=== PATIENT | female | born 1980 | race Caucasian/White ===

== ENCOUNTER 2016-05-18 11:20 | Inpatient (IN) | payer MEDICAID ==
[2016-05-18] VITALS (12 sets, daily range): BP systolic 107–120; BP diastolic 52–69; PULSE 64–96; RESP 15–22; TEMP 98.6
[~2016-05-18] VITALS: Wt 70.0 kg
[2016-05-18] MEDS ORDERED: ONDANSETRON 4 MG INJ IV STA ×2 (12:07→15:38)
[2016-05-18] MEDS ORDERED: KETOROLAC 30 MG INJ IV STA (12:26)
--- NOTE | 2016-05-18 12:57 | RADRPT ---
PROCEDURE: Abdominal ultrasound CLINICAL INDICATION: Abdominal pain TECHNIQUE: Lawrence scale, color Doppler, and spectral Doppler ultrasound images of the right upper qu adrant. COMPARISON: None FINDINGS: Pancreas: Visualized portions appear of normal echogenicity, no focal lesions. Liver: Morphology: Normal in size and contour. Echogenicity: Normal. Focal lesions: None. Main portal vein: Patent with hepatopetal flow. Biliary System: Normal appearing gallbladder wall. Minimal sludge seen layering within the gallbladder. No definite shadowing gallstones are identifie d. No intra or extra-hepatic biliary dilatation. Common bile duct measures 3.6 mm in maximal dimension. Kidneys: Right 10.9 cm in length. Normal echogenicity. No hydronephrosis. No focal lesions or renal calculi. No free fluid identified. IMPRESSION: Normal gallbladder. No gallstones are seen. RPTAT: AADD .Jimmy Phillips MD, MD Date Time Electronically viewed and signed by .Jimmy Phillips MD, on 05/18/2016 12:56 .B/
[2016-05-18 13:04] LABS: BASOPHILS % 0.1 % (0.0-2.0); EOSINOPHILS % 0.2 % (0.0-7.0); HEMATOCRIT 31.1 % (37.0-47.0); HEMOGLOBIN 10.4 g/dl (12.0-16.0); LYMPHOCYTES # 1.6 10^3/ul (0.8-2.9); LYMPHOCYTES % 7.9 % (15.0-51.0); MEAN CORPUSCULAR HEMOGLOBIN 25.8 pg (29.0-33.0); MEAN CORPUSCULAR HGB CONC 33.5 g/dl (32.0-37.0); MEAN CORPUSCULAR VOLUME 76.9 fl (82.0-101.0); MONOCYTE # 0.9 10^3/ul (0.3-0.9); MONOCYTES % 4.4 % (0.0-11.0); NEUTROPHIL # 17.2 10^3/ul (1.6-7.5); NEUTROPHILS % 87.4 % (39.0-77.0); PLATELET COUNT 363 10^3/UL (140-440); RED BLOOD COUNT 4.05 10^6/ul (4.20-5.40); UNCORRECTED WBC 19.7 10^3/ul (4.8-10.8); WHITE BLOOD COUNT 19.7 10^3/ul (4.8-10.8)
[2016-05-18 13:10] LABS: ALBUMIN 4.3 g/dl (3.3-4.9)
[2016-05-18 13:11] LABS: POTASSIUM 3.6 mmol/L (3.5-5.1)
[2016-05-18 13:12] LABS: CONDITION 1; LH ANALYZER COMMENTS 1
[2016-05-18 13:13] LABS: BILIRUBIN,INDIRECT 0.4 mg/dl (0-1.1); BILIRUBIN,TOTAL 0.4 mg/dl (0.2-1.3); CREATININE 0.51 mg/dl (0.44-1.00)
[2016-05-18 13:14] LABS: ALBUMIN/GLOBULIN RATIO 1.19; CALCIUM 9.3 mg/dl (8.4-10.2); TOTAL PROTEIN 7.9 g/dl (6.1-8.1)
[2016-05-18 13:16] LABS: ADD UMIC YES; URINE BILIRUBIN (Dip) NEGATIVE (NEGATIVE); URINE BLOOD (Dip) 2+ (NEGATIVE); URINE COLOR LT. YELLOW (YELLOW); URINE GLUCOSE (Dip) NEGATIVE (NEGATIVE); URINE KETONES (Dip) 15 (NEGATIVE); URINE LEUKOCYTE ESTERASE (Dip) NEGATIVE (NEGATIVE); URINE NITRITE (Dip) NEGATIVE (NEGATIVE); URINE TOTAL PROTEIN (Dip) NEGATIVE (NEGATIVE); URINE UROBILINOGEN (Dip) 0.2 E.U./dL (0.1-1.0)
[2016-05-18 14:01] LABS: BACTERIA,URINE FEW; URINE RBCS 0-2 /HPF (0)
[2016-05-18] MEDS ORDERED: SOD CHLORIDE 0.9% 100 ML ONE (14:58)
[2016-05-18] MEDS ORDERED: IOHEXOL 300MG/ML 150 ML BTL ONE (14:58)
[2016-05-18] MEDS ORDERED: SOD CHLORIDE 0.9% 1,000 ML IV STA (15:27)
[2016-05-18] MEDS ORDERED: PIPER-TAZO 3.375 GM IV (PMX) 100 ML IVPB STA (15:27)
--- NOTE | 2016-05-18 15:27 | RADRPT ---
PROCEDURE: CT Abdomen and Pelvis with contrast. CLINICAL INDICATION: Abdominal pain, leukocytosis TECHNIQUE: CT of the abdomen and pelvis was performed on a multi-detector scanner following the un complicated IV administration of 100 cc of Omnipaque 300. Coronal and sagittal images were reformat shanice from the axial data set. One or more of the following dose reduction techniques were used: auto mated exposure control, adjustment of the mA and/or kV according to patient size, use of iterative reconstruction technique. CTDI = 9.38 mGy. DLP = 491.05 mGy-cm. COMPARISON: Ultrasound, 05/18/2016 FINDINGS: CT abdomen: The lung bases are clear. The heart size is normal, without pericardial effusion. Liver, gallbladd er, biliary tree, pancreas, spleen, adrenal glands and kidneys are unremarkable. No urolithiasis or obstructive uropathy is identified. The stomach is grossly unremarkable. There is no abdominal aortic aneurysm or dissection. There is no retroperitoneal lymphadenopathy. The marcie hepatis region is clear. CT pelvis: The appendix is distended (10 mm diameter), with adjacent inflammation, with appendicitis. No bowel obstruction, free intraperitoneal air or abscess is identified. There is no diverticulosis, divert iculitis or colitis. Urinary bladder, uterus and adnexa are grossly unremarkable. No pelvic mass, free fluid or lymphadenopathy is seen. The surrounding osseous structures are unremarkable. No osteolytic or osteoblastic lesion is detect ed. IMPRESSION: 1. The study is positive for appendicitis, as above. A call report was made to Dr. Dietrich on 05/18/2016 3:23:43 PM. RPTAT: TT .Cristobal Waters MD, Date Time Electronically viewed and signed by .Cristobal Waters MD, on 05/18/2016 15:26 .R/
[2016-05-18] MEDS ORDERED: morphine 4 MG/ML VIAL IV STA (15:38)
--- NOTE | 2016-05-18 16:20 | ERA ---
ER Documentation Chief Complaint Date/Time DATE: 05/18/16 TIME: 16:10 Chief Complaint ABD PAIN X 2 DAYS HPI 36-year-old female complaining of abdominal pain and vomiting since 5 AM this morning. The pain is constant, in the mid to upper region. She also vomited 6 times today, several times she notes a small amount of blood in the vomit. Patient states that she frequently has this type of abdominal pain and vomiting in the past. In the past when she has abdominal pain, the pain is usually worse after eating. She has not eaten anything today. Last meal was last night. Her last bowel movement was this morning, which was normal. LMP 2015. Denies fever or chills. Denies diarrhea. ROS All systems reviewed and are negative except as per history of present illness. Allergies Allergies: Coded Allergies: No Known Allergy (Unverified , 05/18/16) PMhx/Soc Medical and Surgical Hx: pt denies Medical Hx, pt denies Surgical Hx Physical Exam Vitals Vital Signs Date Time Temp Pulse Resp B/P Pulse Ox O2 Delivery O2 Flow Rate FiO2 05/18/16 16:17 98.6 80 20 106/51 100 Room Air 05/18/16 11:25 98.0 88 18 122/78 99 Physical Exam General impression: Well-developed, well-nourished, 36-year-old female, alert, oriented, in no acute distress Head: Normocephalic, atraumatic. Eyes: Conjunctiva not injected. Neck: Supple, nontender. No lymphanopathy. No nuchal rigidity. Respiration: Normal respiratory effort. Lungs clear to auscultate bilaterally. No wheezes, rales or rhonchi. Cardiovascular: Regular rate and rhythm. No murmurs or extra heart sounds. Abdomen: Abdomen normal to inspection. Diffuse abdominal tenderness noted, with epigastric, right upper quadrant and right lower quadrant tenderness. No rebound or guarding. No masses or organomegaly. Bowel sounds normal. Back: Normal to inspection. No midline spine tenderness. No CVA tenderness. Neuro: Mental status normal, speech normal. Skin: Normal turgor. No rash or lesions. Psych: Normal mood and affect. Result Diagram: 05/18/16 1237 05/18/16 1237 Results 24 hrs Laboratory Tests Test 05/18/16 12:37 Alanine Aminotransferase (ALT/SGPT) 27IU/L Albumin 4.3g/dl Albumin/Globulin Ratio 1.19 Alkaline Phosphatase 80IU/L Anion Gap 15 Aspartate Amino Transf (AST/SGOT) 24IU/L Basophils # 0.010^3/ul Basophils % 0.1% Blood Morphology Comment Blood Urea Nitrogen 13mg/dl Calcium Level 9.3mg/dl Carbon Dioxide Level 27mmol/L Chloride Level 102mmol/L Creatinine 0.51mg/dl Direct Bilirubin 0.00mg/dl Eosinophils # 0.010^3/ul Eosinophils % 0.2% Globulin 3.60g/dl Glucose Level 107mg/dl Hematocrit 31.1% Hemoglobin 10.4g/dl Indirect Bilirubin 0.4mg/dl Lipase 65U/L Lymphocytes # 1.610^3/ul Lymphocytes % 7.9% Mean Corpuscular Hemoglobin 25.8pg Mean Corpuscular Hemoglobin Concent 33.5g/dl Mean Corpuscular Volume 76.9fl Mean Platelet Volume 8.0fl Monocytes # 0.910^3/ul Monocytes % 4.4% Neutrophils # 17.210^3/ul Neutrophils % 87.4% Nucleated Red Blood Cells # 0.010^3/ul Nucleated Red Blood Cells % 0.0/100WBC Platelet Count 47896^3/UL Potassium Level 3.6mmol/L Red Blood Count 4.0510^6/ul Red Cell Distribution Width 17.0% Sodium Level 140mmol/L Total Bilirubin 0.4mg/dl Total Protein 7.9g/dl Urine Bacteria FEW Urine Bilirubin NEGATIVE Urine Clarity CLEAR Urine Color LT. YELLOW Urine Epithelial Cells FEW Urine Glucose NEGATIVE% Urine Hemoglobin 2+ Urine Ketones 15 Urine Leukocyte Esterase NEGATIVE Urine Microscopic RBC 0-2/HPF Urine Microscopic WBC 0-2/HPF Urine Nitrite NEGATIVE Urine Specific [place] 1.025 Urine Total Protein NEGATIVE Urine Urobilinogen 0.2 E.U./dL Urine pH 5.5 White Blood Count 19.710^3/ul Current Medications Medications (Trade) Dose Ordered Sig/Onel Route PRN Reason Start Time Stop Time Status Last Admin Dose Admin Ondansetron HCl (Zofran Inj) 4 mg ONCE STAT IV 05/18/16 12:07 05/18/16 12:12 DC 05/18/16 12:48 Ketorolac Tromethamine (Toradol) 30 mg ONCE STAT IV 05/18/16 12:26 05/18/16 12:27 DC 05/18/16 12:50 IV Flush 10 ml 10 ml STK-MED ONCE .ROUTE 05/18/16 14:58 05/18/16 14:59 DC 05/18/16 15:14 Sodium Chloride (NS) 100 ml @ ud STK-MED ONCE .ROUTE 05/18/16 14:58 05/18/16 14:59 DC 05/18/16 15:14 Iohexol 150 ml 150 ml STK-MED ONCE .ROUTE 05/18/16 14:58 05/18/16 14:59 DC 05/18/16 15:18 Sodium Chloride 1,000 ml @ 1,000 mls/hr Q1H STAT IV 05/18/16 15:27 05/18/16 16:26 05/18/16 16:04 Piperacillin Sod/ Tazobactam Sod (Zosyn 3.375gm/ 100 ml (Pmx)) 100 ml @ 200 mls/hr ONCE STAT IVPB 05/18/16 15:27 05/18/16 15:56 DC 05/18/16 16:04 Morphine Sulfate (morphine) 4 mg ONCE STAT IV 05/18/16 15:38 05/18/16 15:39 DC Ondansetron HCl (Zofran Inj) 4 mg ONCE STAT IV 05/18/16 15:38 05/18/16 15:39 DC Ondansetron HCl (Zofran Inj) 4 mg BRIDGE ORDER PRN IV NAUSEA AND/OR VOMITING 05/18/16 16:30 05/19/16 16:29 Acetaminophen 650 mg 650 mg ER BRIDGE PRN PO MILD PAIN/FEVER 05/18/16 16:30 05/19/16 16:29 Sodium Chloride (NS) 1,000 ml @ 1,000 mls/hr Q1H ONCE IV 05/18/16 16:30 05/18/16 17:29 Procedures/MDM Zofran given to the patient in the ED for nausea of vomiting. After Zofran, patient is no longer feeling nauseous. Patient also given morphine 4 mg IV for pain. Urine was negative. CBC, CMP, lipase, and UA was obtained. Leukocytosis noted with WBC 19.7, neutrophils 87.4%. CMP and lipase are unremarkable. UA showed 2+ hemoglobin, otherwise negative. Gallbladder ultrasound is normal, no gallstones were seen. CT abdomen and pelvis also obtained. CT showed acute appendicitis with this extended appendix appendix distended at 10 mm in diameter with adjacent inflammation. Normal saline 1 L bolus, Zosyn 3.375 g IV is ordered for the patient. Patient transferred to ED while under care of Dr. Hartmann for admission. Patient condition at time of transfer: Stable. PAMELA CHRISTIE NP May 18, 2016 16:20
--- NOTE | 2016-05-18 16:29 | EN ---
Date/Time of Note Date/Time of Note DATE: 05/18/16 TIME: 16:27 ER Progress Note 36-year-old female with appendicitis. Workup began in ED 2. I was notified when the CT came back positive for appendicitis. Patient's pain is currently controlled with morphine. I ordered another liter of fluids I ordered coagulation studies and a type and screen. I spoke with Dr. Villa, general surgeon on-call, who accepts the case. I also spoke with Dr. Gray who will be admitting the patient to the medical surgical floor. Patient is currently comfortable. Vital signs are stable RAMEZ FITZGERALD DO May 18, 2016 16:28
[2016-05-18] MEDS ORDERED: SOD CHLORIDE 0.9% 1,000 ML IV ONE (16:30)
[2016-05-18] MEDS ORDERED: ONDANSETRON 4 MG INJ IV PRN ×4 (16:30→20:00)
[2016-05-18] MEDS ORDERED: ACETAMINOPHEN 325 MG TAB PO PRN ×3 (16:30→20:00)
[2016-05-18 16:52] LABS: INR 1.02; PROTIME 13.4 Sec (12.2-14.2)
[2016-05-18 16:53] LABS: PARTIAL THROMBOPLASTIN TIME 27.3 Sec (25.0-35.0)
[2016-05-18] MEDS ORDERED: NACL 0.9% 3 ML SYG IV SCH (17:00)
[2016-05-18] MEDS ORDERED: MAGNESIUM HYDROXIDE 30ML CUP PO PRN (17:00)
[2016-05-18] MEDS ORDERED: BISACODYL (EC) 5 MG TAB PO PRN (17:00)
[2016-05-18] MEDS ORDERED: D5W-0.45 NACL + KCL 10 MEQ 1,000 ML IV SCH (17:00)
[2016-05-18] MEDS ORDERED: morphine 2 MG INJ IV PRN ×2 (17:00→20:00)
--- NOTE | 2016-05-18 17:05 | HP ---
Date/Time of Note Date/Time of Note DATE: 05/18/16 TIME: 16:58 Assessment/Plan VTE Prophylaxis VTE Prophylaxis Intervention: SCD's Assessment/Plan Assessment/Plan 1. Acute abdominal pain. CT evidence of acute appendicitis. The patient will be started on empiric antibiotics. The patient will be kept NPO. She will be provided with IV hydration. General surgery consult was already called. The patient will be provided with adequate pain control. 2. Leukocytosis. Most probably secondary to #1. Will start the patient on empiric antibiotics. 3. Microcytic, hypochromic anemia. Etiology unclear. Will obtain an iron panel to evaluate for any underlying iron deficiency. Will obtain a stool for occult blood. 4. Hematochezia. The patient verbalized that she has been having hematochezia on and off for the past 1 week. The patient also verbalized that she has hemorrhoids. This could be the most probable reason for her underlying hematochezia. Will obtain a stool for occult blood on this patient. Plan: The patient will be admitted to inpatient medical surgical floor. The patient will be kept NPO. The patient will be started on DVT prophylaxis and gastrointestinal prophylaxis. The patient will remain a full code. Activities will be as tolerated. The rest of the patient's management will be based on the clinical course, inputs from consultants, and the results of diagnostic studies. Based on the patient's clinical presentation, he most probably requires at least 1 midnight's stay for further management and evaluation of his clinical presentation. The case and management of this patient was fully discussed with Approximately 50 minutes was spent on the history and physical of this patient. HPI/ROS Admit Date/Time Admit Date/Time Hx of Present Illness Reason for admission: Abdominal pain with associated vomiting. Consultants 1. Eleuterio Villa M.D., General Surgery. This is a 36-year-old female without any significant past medical history who came to the emergency room with chief complaint of abdominal pain that has been going on for the past 2 days which got worse along with associated vomiting since 5 AM on 05/18/2016. The patient reported 6 episodes of bilious vomiting with some blood stain in it. She denied any fevers, chills, diarrhea, dysuria, or hematuria. The patient complained of hematochezia that has been going on and off for the past 1 week or so. The patient also verbalized some epistaxis during the past 1 week that resolved on its own. She denied any chest pain, dyspnea, headache, or dizziness. In the emergency room, the patient underwent a CT scan of the abdomen and pelvis that showed evidence of acute appendicitis. The patient's gallbladder ultrasound showed normal gallbladder with no evidence of any gallstones. The patient was started on IV fluids and was given a single dose of IV antibiotics in the emergency room. ROS Constitutional: no complaints Eyes: no complaints ENT: bleeding (Epistaxis) Respiratory: no complaints Cardiovascular: no complaints Gastrointestinal: other (hematochezia), pain, vomiting Genitourinary: no complaints Musculoskeletal: no complaints Skin: no complaints Neurologic: no complaints Endocrine: no complaints Lymphatic: no complaints Psychological: no complaints PMH/Family/Social Past Medical History Medical History: no pertinent history Past Surgical History Past Surgical Hx: no surgical history Social History The patient lives with family at home. Alcohol Use: none Smoking Status: Never smoker Drug Use: none Exam/Review of Systems Vital Signs Vitals Vital Signs Date Time Temp Pulse Resp B/P Pulse Ox O2 Delivery O2 Flow Rate FiO2 05/18/16 16:17 98.6 80 20 106/51 100 Room Air Exam Exam General: Adequately build 36 year-old female lying in bed in no apparent distress. HEENT: Normocephalic, atraumatic. Eyes: Anicteric sclerae, conjunctivae clear. ENT: Nasal septum midline, oral mucosa moist. Neck supple, no JVD noticed. Respiratory: Bilaterally clear breath sounds. No use of accessory muscles of respiration. No adventitious breath sounds. Cardiovascular: S1, S2 heard. No murmurs or gallops. Abdomen: Soft and nondistended. Bowel sounds positive in all 4 quadrants. Tenderness to palpation in the left upper quadrant, left lower quadrant, right lower quadrant, and periumbilical area. No rebound tenderness. Genitourinary: No CVA tenderness bilaterally. Extremities: No cyanosis, no clubbing, no edema. Peripheral pulses palpable. Neurologic: Cranial nerves II through XII grossly intact. The patient is awake, alert, and oriented. Skin: Normal skin turgor. No skin rashes. Labs Result Diagram: 05/18/16 1237 05/18/16 1237 Medications Medications Current Medications Sodium Chloride (NS) 1,000 ml @ 1,000 mls/hr Q1H ONCE IV Last administered on 05/18/16t 16:25; Admin Dose 1,000 MLS/HR; Start 05/18/16 at 16:30; Stop at 17:[address] SCAN OF ABDOMEN AND PELVIS IMPRESSION: 1. The study is positive for appendicitis. GALLBLADDER ULTRASOUND IMPRESSION: Normal gallbladder. No gallstones are seen. REMI PRETTY NP May 18, 2016 17:05
[2016-05-18 18:20] LABS: IRON 21 ug/dl (35-150)
[2016-05-18 18:30] LABS: TOTAL IRON BINDING CAPACITY 494 ug/dl (241-421)
[2016-05-18] MEDS ORDERED: LIDOCAINE 1%/EPI 30 ML INJ ONE (19:47)
[2016-05-18] MEDS ORDERED: BUPIVACAINE 0.25%/EPI (SDV) 30 ML INJ ONE ×2 (19:48→20:02)
[2016-05-18] MEDS ORDERED: LIDOCAINE 2% (SDV) 5 ML INJ ONE (19:52)
[2016-05-18] MEDS ORDERED: PROPOFOL 20 ML ONE (19:52)
[2016-05-18] MEDS ORDERED: HYDROCODONE/APAP (5/325) TAB PO PRN (20:00)
[2016-05-18] MEDS ORDERED: OXYCODONE/ACETAMINOPHEN (5/325) TAB PO PRN (20:00)
[2016-05-18] MEDS ORDERED: hydrALAzine 20 MG INJ IV PRN (20:00)
[2016-05-18] MEDS ORDERED: LABETALOL HCL 20MG INJ IV PRN (20:00)
[2016-05-18] MEDS ORDERED: IBUPROFEN 600 MG TAB PO PRN (20:00)
[2016-05-18] MEDS ORDERED: METOCLOPRAMIDE 10 MG INJ IV PRN (20:00)
[2016-05-18] MEDS ORDERED: FENTAnyl 50 MCG/ML VIAL IV PRN ×3 (20:00)
[2016-05-18] MEDS ORDERED: MEPERIDINE 25 MG INJ IV PRN (20:00)
[2016-05-18] MEDS ORDERED: HYDROmorphONE (0.2 MG/ML) 10ML SYG IV PRN ×3 (20:00)
[2016-05-18] MEDS ORDERED: LIDOCAINE 1% (MPF) 30 ML INJ ONE (20:02)
[2016-05-18] MEDS ORDERED: ONDANSETRON 4 MG INJ ONE (20:32)
[2016-05-18] MEDS ORDERED: DEXAMETHASONE 4 MG/ML 1 ML INJ ONE (20:32)
--- NOTE | 2016-05-18 20:54 | PREOPHP ---
DATE OF ADMISSION: 05/18/2016 HISTORY OF PRESENT ILLNESS: Ms. Machuca is a 36-year-old female, who developed acute onset of abdomin al pain yesterday, which worsened overnight. She had nausea and emesis. Her symptoms persisted and she came to the ER. Her CT revealed acute appendicitis. PAST MEDICAL HISTORY: Noncontributory. PAST SURGICAL HISTORY: None. MEDICATIONS: None. ALLERGIES: NO KNOWN DRUG ALLERGIES. SOCIAL HISTORY: She drinks occasionally. Denies smoking or drug use. PHYSICAL EXAMINATION: GENERAL: She is a well-nourished, well-developed female, in no apparent distress. VITAL SIGNS: Stable. She is afebrile. CHEST: Clear to auscultation bilaterally. HEART: Regular rhythm. ABDOMEN: Soft, nondistended, but significant right lower quadrant tenderness. LABORATORY DATA: Revealed a white count of 20, hematocrit of 31, platelets of 363,000. Sodium 140, potassium 3.6, chloride 102, CO2 27, BUN and creatinine 13 and 0.5, glucose 107. Her CT reveals ac fatou appendicitis. ASSESSMENT AND PLAN: Ms. Machuca is a 36-year-old female with acute appendicitis. I discussed laparo scopic, possible open appendectomy with the patient. All benefits, risks, alternatives were discuss ed in detail. All questions answered and patient elects to proceed. Dictated By: JALYN GONZALEZ/NTS Conf#: [id number] DID#: [id number]
[2016-05-18] MEDS ORDERED: SOD FERRIC GLUC COMPLX 125 MG in SOD CHLORIDE 0.9% 100 ML IVPB SCH (21:00)
[2016-05-18] MEDS: D5-NS + KCL 20 MEQ 1,000 ML IV SCH (21:48)
[2016-05-18] MEDS: FAMOTIDINE 20 MG INJ IV SCH (21:48)
[2016-05-18] MEDS ORDERED: PIPER-TAZO 3.375 GM IV (PMX) 100 ML IVPB SCH (22:30)
[2016-05-18] MEDS: PIPER-TAZO 3.375 GM IV (PMX) 100 ML IVPB SCH (23:07)
[2016-05-19 00:30] VITALS: BP 118/62; PULSE 82; RESP 18
[2016-05-19] MEDS: PIPER-TAZO 3.375 GM IV (PMX) 100 ML IVPB SCH ×3 (05:32→18:00)
[2016-05-19] MEDS: D5-NS + KCL 20 MEQ 1,000 ML IV SCH (05:32)
[2016-05-19 05:45] LABS: HEMATOCRIT 28.6 % (37.0-47.0); HEMOGLOBIN 9.7 g/dl (12.0-16.0); LYMPHOCYTES # 0.7 10^3/ul (0.8-2.9); LYMPHOCYTES % 4.4 % (15.0-51.0); MEAN CORPUSCULAR VOLUME 76.5 fl (82.0-101.0); MEAN PLATELET VOLUME 8.5 fl (7.4-10.4); MONOCYTE # 0.2 10^3/ul (0.3-0.9); MONOCYTES % 1.3 % (0.0-11.0); NEUTROPHIL # 14.6 10^3/ul (1.6-7.5); NEUTROPHILS % 94.3 % (39.0-77.0); PLATELET COUNT 358 10^3/UL (140-440); RED BLOOD COUNT 3.74 10^6/ul (4.20-5.40); RED CELL DISTRIBUTION WIDTH 16.8 % (11.5-14.5); UNCORRECTED WBC 15.5 10^3/ul (4.8-10.8); WHITE BLOOD COUNT 15.5 10^3/ul (4.8-10.8)
[2016-05-19 06:04] LABS: CHOL/HDL RATIO 2.1 RATIO; MAGNESIUM 1.9 mg/dl (1.7-2.5); PHOSPHORUS 3.5 mg/dl (2.5-4.9)
[2016-05-19 06:13] LABS: ALBUMIN 3.6 g/dl (3.3-4.9)
[2016-05-19 06:16] LABS: ALBUMIN/GLOBULIN RATIO 1.05; BILIRUBIN,INDIRECT 0.4 mg/dl (0-1.1); BILIRUBIN,TOTAL 0.4 mg/dl (0.2-1.3); CREATININE 0.57 mg/dl (0.44-1.00)
--- NOTE | 2016-05-19 06:16 | OPR ---
DATE OF OPERATION: 05/18/2016 PREOPERATIVE DIAGNOSIS: Acute appendicitis. POSTOPERATIVE DIAGNOSIS: Acute appendicitis. PROCEDURE: Laparoscopic appendectomy. SURGEON: Jalyn Villa MD BEAM BUILDER HELPER: None. ANESTHESIOLOGIST: Tiff ESTIMATED BLOOD LOSS: Minimal. COMPLICATIONS: None. SPECIMENS: Appendix. FINDINGS: Acute appendicitis. INDICATIONS: The patient is a 36-year-old female who had acute onset of generalized abdominal pain localizing to right lower quadrant. She presented to the ER at [facility] and workup was c onsistent with acute appendicitis. I discussed laparoscopic and possible open appendectomy with the patient. All benefits, risks, alternatives were discussed in detail. All questions answered. The patient elected to proceed. DESCRIPTION OF PROCEDURE: The patient was brought to the operating room and placed supine on the ta ble. After preop antibiotics and SCDs were placed, the patient was intubated and the abdomen was cl eaned, prepped and draped in sterile fashion. All incisions were infiltrated with 1% lidocaine with epinephrine and 0.5% Marcaine prior to incisi on. A 5 mm incision was made in the umbilicus. Using a 5 mm laparoscope-containing trocar, the abd omen was entered under direct vision and insufflated to 15 mmHg CO2. Under direct vision, a right l ower quadrant 5 mm and left lower quadrant 12 mm trocars were placed. Emanating from the cecum was an obvious acute appendicitis. It was not ruptured or perforated. I made a rent at the base of the appendix and divided the cecum at the appendiceal base with a 35 mm Endo Linear Cutter white load. The appendiceal mesentery was then divided with a 35 mm Endo Linear Cutter white load. The appendi x was placed in EndoCatch bag and removed from the 12 mm trocar site. I irrigated out the right lower quadrant and pelvis until effluent was clear. I visualized my stap le line and it was hemostatic. The fascia of the 12 mm trocar site was closed with 0 Vicryl. The a bdomen was then desufflated and all trocars removed. Skin incisions were closed with 4-0 Monocryl, Mastisol and Steri-Strips. The patient tolerated procedure well, was extubated in the OR and transferred to recovery room in st able condition. Dictated By: JALYN GONZALEZ/NTS Conf#: [id number] [facility]#: [id number]
[2016-05-19 06:17] LABS: CALCIUM 8.4 mg/dl (8.4-10.2)
[2016-05-19 06:23] LABS: CONDITION 1; LH ANALYZER COMMENTS 1
[2016-05-19 06:24] LABS: POTASSIUM 3.9 mmol/L (3.5-5.1)
[2016-05-19 06:34] LABS: THYROID STIMULATING HORMONE 0.22 MIU/L (0.465-4.680)
[2016-05-19] MEDS ORDERED: ENOXAPARIN 40 MG/0.4 ML SYG SC SCH (07:00)
[2016-05-19 07:12] VITALS: BP 111/56; RESP 17
[2016-05-19] MEDS: FAMOTIDINE 20 MG INJ IV SCH (08:43)
--- NOTE | 2016-05-19 10:42 | PDOCDIS ---
Discharge Instructions DIAGNOSIS Discharge Diagnosis: Acute appendicitis. Status post laparoscopic appendectomy. CONDITION Patient Condition: Stable HOME CARE INSTRUCTIONS: Diet Instructions: Regular ACTIVITY: Activity Restrictions: Slowly Increase Activity Rest between Activity Avoid heavy lifting Do not operate Machinery Do not operate Power Tool Avoid Heavy Housework Bathing Restrictions: Tub Bath FOLLOW UP/APPOINTMENTS Appointments Eleuterio Villa MD Specialty: General Surgery Office Address: [address] [facility] [address] [place] [id number] Office OTHER ORDERS: Other Orders: 1. Regular diet as tolerated. 2. Keep incisions clean and dry. May shower. Avoid tub baths and swimming for 2 weeks. Use mild soap and pat dry the incisions. 3. Take medications as needed for pain. 4. Call the surgeon or go to the nearest ER if you have severe abdominal pain despite pain medications. 5. Call the surgeon or go to the nearest ER if you notice any bleeding or secretions coming out of the incision sites. Also call the surgeon if you notice any blood in stool, if you have persistent fevers, or any other unusual signs or symptoms. 6. Follow-up with the surgeon Dr. Villa in 7 days for incision check. 7. Avoid heavy lifting [more than 25 pounds] for 8 weeks. REMI PRETTY NP May 19, 2016 10:41
[2016-05-19] MEDS ORDERED: CEPH-443 PO (10:43)
[2016-05-19] MEDS ORDERED: HYDR-3498 PO (10:43)
[2016-05-19] MEDS ORDERED: FER325 PO (10:43)
[2016-05-19] MEDS ORDERED: DOCU-144 PO (10:52)
[2016-05-19] MEDS ORDERED: OXYC-279 PO (10:52)
[2016-05-19] MEDS: HYDROCODONE/APAP (5/325) TAB PO PRN ×2 (12:13→18:12)
[2016-05-19] MEDS ORDERED: CEPASTAT LOZENGE MT PRN (13:00)
--- NOTE | 2016-05-19 15:38 | DS ---
DATE OF ADMISSION: 05/18/2016 DATE OF DISCHARGE: 05/19/2016 FINAL DIAGNOSES: 1. Acute appendicitis. Status post laparoscopic appendectomy. 2. Leukocytosis from appendicitis. 3. Microcytic hypochromic anemia, with underlying iron deficiency. CONSULTATIONS: Dr. Eleuterio Villa, General Surgery. HOSPITAL COURSE: This is a 36-year-old female without any significant past medical history, who came to the emergency room with a chief complaint of abdominal pain that has been going on for the past 2 days, which got worse, along with associated vomiting since 5 a.m. on 05/18/2016. The patient reported 6 episodes of bilious vomiting with some blood stain in it. She denied any fevers, chills, diarrhea, dysuria, or hematuria. The patient complained of hematochezia that has been going on and off for the past 1 week or so. The patient also verbalized some epistaxis during the past 1 week that resolved on its own. She denied any chest pain, dyspnea, headache or dizziness. In the emergency room, the patient underwent a CT scan of the abdomen and pelvis that showed evidence of acute appendicitis. Provided the patient's history of present illness and the diagnostic findings, a clinical decision was made to admit the patient to the inpatient setting to have her further evaluated. The patient was admitted to the inpatient medical/surgical floor. The patient was kept n.p.o. She was started on adequate analgesics. The patient was started on empiric antibiotics. A general surgery consult was called on this patient. The patient underwent a laparoscopic appendectomy on 05/18/2016, with no immediate postoperative complications. Postoperatively, the patient was started on a clear liquid diet and the patient's diet was advanced as tolerated to a regular consistency diet, without any significant gastrointestinal symptoms. The patient was encouraged on frequent use of incentive spirometry and frequent ambulation. The patient had some trouble with urinary retention postoperatively. Hence, the patient had a Burns catheter inserted, which was later removed, with no evidence of any urinary retention. The patient was also noticed to have microcytic, hypochromic anemia. The patient's iron panel showed iron deficiency. The patient was maintained on iron supplements for the same. The patient also verbalized that she had hematochezia prior to admission. A stool for OB was ordered on this patient; however, the patient had no bowel movements during this admission. Hence, this was not sent. The patient also verbalized that she has a history of hemorrhoids , the most probable reason for her underlying hematochezia. The patient had a stable hospital course. The patient was cleared by the consultants to be discharged home. The patient's pain is well controlled with oral analgesics. The patient is able to tolerate a regular consistency diet without any significant gastrointestinal symptoms. DISCHARGE DISPOSITION/PLAN: The patient will be discharged home today. The patient was instructed to take a regular diet as tolerated. She was instructed to keep the incisions clean and dry and she may shower, but to avoid tub baths and swimming for 2 weeks. She was instructed to use mild soap and to pat dry the incisions. She was instructed to take medications as needed for pain and to call the surgeon or go to the nearest emergency room if she has severe abdominal pain, despite pain medications. She was also instructed to call the surgeon or go to the nearest emergency room if she notices any bleeding or secretions coming out of the incision sites and also to call the surgeon if she notices any blood in the stool, if she has persistent fevers, or any other unusual signs or symptoms. The patient was instructed to follow up with Dr. Villa in 7 days for an incision check. She was instructed to avoid heavy lifting of more than 25 pounds for 8 weeks. The patient was also given a letter to her employment regarding the patient's hospitalization. The patient can return to work on 05/23/2016, with limitations of no heavy lifting for 8 weeks. The patient verbalized understanding of her discharge instructions. CONDITION AT DISCHARGE: Stable. DISCHARGE MEDICATIONS: 1. Colace 100 mg p.o. b.i.d. 2. Ferrous sulfate 325 mg p.o. b.i.d. 3. Percocet 5/325, one tablet p.o. q.4h. p.r.n. pain (#25 tablets). PERTINENT LABORATORY AND DIAGNOSTIC PROCEDURES: 1. Laparoscopic appendectomy on 05/18/2016. 2. CT scan of the abdomen and pelvis. The appendix was distended (10 mm diameter) with adjacent inflammation with appendicitis. No bowel obstruction, free intraperitoneal air or abscess was identified. There was no diverticulosis , diverticulitis or colitis. 3. Gallbladder ultrasound. Normal gallbladder. No gallstones are seen. 4. Latest CBC: WBC 15.5, hemoglobin 9.7, hematocrit 28.6, platelet count 350. 5. Latest BMP: Sodium 139, potassium 3.9, chloride 106, carbon dioxide 24, anion gap 13, BUN 10, creatinine 0.57, glucose 171, calcium 8.4, phosphorus 3.7 , magnesium 1.9. 6. Hemoglobin A1c 5.6. 7. Fasting lipid panel: Triglycerides 44, total cholesterol 178, LDL 88, HDL 81. 8. Iron panel: Iron 21, TIBC 494, iron saturation 4, ferritin 4.8. At this time, I would like to thank Dr. Villa for seeing the patient, doing the necessary procedures, and providing clinical recommendations. The case and management of this patient was fully discussed with Dr. Gray. Approximately 35 minutes was spent on coordinating the discharge on this patient. REMI GRAY MD, AM/BOGDAN Conf#: [id number] DID#: [id number]
== END 2016-05-19 18:40 | disposition home or self-care (01) | DRG 342 ==
LOC: FTE 11:20 → MS1 16:10
PROVIDERS: ADMIT Family Medicine; ATTEND Family Medicine
PROC: 0DTJ4ZZ Resection of Appendix, Percutaneous Endoscopic Approach (ICD-10-PCS; principal; 2016-05-18 19:30)
DX: K35.80 Unspecified acute appendicitis (principal); K92.1 Melena; D72.829 Elevated white blood cell count, unspecified; D50.9 Iron deficiency anemia, unspecified; R33.9 Retention of urine, unspecified
CPT/HCPCS: 36415; 74177; 76705; 80053; 80061; 81001; 81003; 82728; 83036; 83540; 83690; 83735; 84100; 84439; 84443; 84703; 85025; 85610; 85730; 86850; 86900; 86901; 88304; 96374; 96375; J1100; J1170; J1650; J1885; J2405; J2543; J2916; J3010; J3480; J7030; Q9967